=== PATIENT | male | born 1950 | race Caucasian/White ===

== ENCOUNTER 2021-12-26 11:43 | Emergency (ER) | payer MEDICARE, BC ==
[~2021-12-26] VITALS: Ht 167.6 cm; Wt 71.2 kg
[~2021-12-26 11:43] MED LIST: LEVOTHYROXINE125 MCG PO; LEVOTHYROXINE75 MCG PO
--- NOTE | 2021-12-26 15:39 | EKG ---
[facility] [address] [place] [address] Signed Normal sinus rhythm Minimal voltage criteria for LVH, may be normal variant ( Sokolow-Tsang ) ST elevation, consider inferior injury or acute infarct ACUTE UT / STEMI Consider right ventricular involvement in acute inferior infarct Abnormal ECG No previous ECGs available Confirmed by YANNA BENITEZ MD ([id number]) on 12/26/2021 3:38:51 PM Electronically Signed By: YANNA BENITEZ MD 12/26/21 1539 PATIENT NAME: YUAN MAHAJAN Electrocardiogram DATE OF : 48 PHYSICIAN: YANNA BENITEZ MD REPORT #: [id number] REPORT IS CONFIDENTIAL AND NOT TO BE RELEASED WITHOUT AUTHORIZATION
== END 2021-12-26 12:20 | disposition short-term general hospital (02) ==
LOC: ED 11:43
DX: I21.3 ST elevation (STEMI) myocardial infarction of unspecified site (principal); Z20.822 Contact with and (suspected) exposure to COVID-19; Z88.1 Allergy status to other antibiotic agents; Z79.899 Other long term (current) drug therapy
CPT/HCPCS: 36415; 71045; 71046; 80053; 82553; 83735; 84484; 85025; 93005; 93010; 96374; 96375; 99285-25; C9803; J1644; J2405; U0003

== ENCOUNTER 2022-07-31 09:26 | Emergency (ER) | payer MEDICARE, BC ==
[~2022-07-31] VITALS: Ht 167.6 cm; Wt 75.3 kg
[2022-07-31] MEDS ORDERED: ASPIRIN81 MG PO (09:36)
[2022-07-31] MEDS ORDERED: ATORVASTATIN CA80 MG PO (09:36)
[2022-07-31] MEDS ORDERED: COZAAR25 MG PO (09:37)
[2022-07-31] MEDS ORDERED: DILTIAZEM 24HR120 MG PO (09:37)
[2022-07-31] MEDS ORDERED: CLOPIDOGREL75 MG PO (09:37)
[2022-07-31] MEDS ORDERED: NITROGLYCERIN0.4 MG SL (09:38)
== END 2022-07-31 10:43 | disposition home or self-care (01) ==
LOC: ED 09:26
DX: S61.512A Laceration without foreign body of left wrist, initial encounter (principal); W26.8XXA Contact with other sharp object(s), not elsewhere classified, initial encounter; Z88.1 Allergy status to other antibiotic agents; Z79.899 Other long term (current) drug therapy; Z79.82 Long term (current) use of aspirin
CPT/HCPCS: 12002; 90471; 90715; 99282-25